=== PATIENT | female | born 1970 | race Caucasian/White ===

== ENCOUNTER 2016-06-29 17:00 | Emergency (ER) | payer MEDICAID ==
[2016-06-29 17:11] VITALS: TEMP 98.1; BMI 21.1
[2016-06-29] MEDS ORDERED: NS 1,000 ML IV ONE (17:22)
--- NOTE | 2016-06-29 17:31 | EDPRACDOC ---
- General Information Chief Complaint: Generalized Weakness Stated Complaint: CONFUSED SWELLING BOTTOM RAW PALE Time Seen by Provider: 06/29/16 17:15 Information Source: Friend Home Medications: Home Medications Alprazolam [Xanax] 1 mg PO Q8H PRN 02/13/16 Oxycodone Immediate Release [Oxycodone Immediate Release (OxyIR)] 10 mg PO Q8H PRN 02/13/16 Docusate Sodium [Colace] 100 mg PO TID #30 capsule 06/29/16 Hydrocortisone [Anusol Hc] 25 mg ME BID #10 supp 06/29/16 Oxycodone HCl [Roxicodone] 5 mg PO Q6H #5 tablet 06/29/16 Allergies/Adverse Reactions: Allergies Allergy/AdvReac Type Severity Reaction Status Date / Time latex Allergy Itching Verified 02/13/16 16:26 meperidine HCl [From Demerol] Allergy Rash-Genera Verified 02/13/16 16:26 lized morphine Allergy See Verified 02/13/16 16:26 Comments NSAIDS (Non-Steroidal Allergy Rash-Genera Verified 02/13/16 16:26 Anti-Inflamma lized - History of Present Illness Onset: 2 days Exact Onset of Symptoms: Unknown HPI: PT SAID THAT SHE HAS NOT BEEN FEELING WELL. SHE HAS HAD A COUGH AND HEMORRHOIDS AND RECTAL BLEEDING. A FAMILY FRIEND BROUGHT PT HERE B/C SHE WAS ALSO ACTING CONFUSED. Symptoms began: Gradually Duration: Since Onset Symptoms Currently: Reports: Still Present Altered Quality: Reports: Confusion Altered Severity: Reports: Mild Recent Symptoms of: Reports: Cough Relevant History: Reports: None Associated signs and symptoms: Reports: Weakness ED Past Medical History - Patient Medical History Cardiac History: Reports: Hypertension (Patient states not taking any meds.) Respiratory History: Reports: COPD, Pneumonia, Emphysema Psychological History: Reports: Anxiety. Denies: Substance Use Disorder Surgical History: Reports: Hysterectomy, Hernia Surgery (10/2015), Other (LEFT HIP, C-SXN, SPLENECTOMY NOVEMBER 2014) Additional Past Surgical History: VENTRAL HERNIA REPAIR - Family Medical History Reports: Cancer (brother), Stroke (grandmother). Denies: Hypertension, Diabetes , Cardiac Disorders - Social Medical History Smoking Status: Heavy tobacco smoker (5 or more cigarettes/day or daily pipe/ cigar) Social History: Denies: Substance Use Disorder ETOH: None Substance Abuse: None Lives In: Home EDM Review of Systems - Review of Systems ROS Negative Except as Marked: Yes All systems reviewed and were negative except as marked Constitutional: Fatigue, Weakness Respiratory: Cough Gastrointestinal: Other (RECTAL BLEEDING) - Physical Exam Constitutional: Alert (Awake) Oriented to: Time, Person, Place Last recorded Vital Signs: Last Vital Signs Temp 98.1 F 06/29/16 17:08 Pulse 104 06/29/16 17:08 Resp 18 06/29/16 17:08 BP Pulse Ox 98 06/29/16 17:08 Oxygen Pulse Oxygen Saturation 98 O2 Device Room Air Oxygen Flow Rate Fraction of Inspired Oxygen ( FIO2) - HEENT Head: Normal ( normocephalic) Eye Exam: Edema, Pale Conjunctiva Oropharynx: Membranes Dry ENT EAC: Normal TMJ: Normal Nose: No Symptoms Reported (septum midline) Neck: Normal (FROM, trachea at midline) - Respiratory/Cardiovascular Respiratory: Wheezes Cardiovascular: Tachycardia - GI Auscultation: Normal (NABS) Palpation: Normal (Soft,No rebound or guarding, non distended) Tenderness: Diffuse, Mild Moya's Sign: Negative Rectal Exam: Heme positive stool, Hemorrhoids (EXTREMELY LARGE AND PAINFUL) Stool: Brown - Musculoskeletal Back: Normal Extremities: Pedal Edema - Integumentary Skin: Normal, Other (TRACK HOWARD) Lymphatics: Normal - Neurologic Memory Impaired: Normal Motor Function: Normal (Normal tone, Pulses 2+ No cyanosis or edema, FROM) Cranial Nerve: Normal (CN II-X11 intact sensation, strength 5/5) Cerebellar: Normal Mood Description: Normal Perception: Normal ED Procedures - Additional Procedures Progress Note: RIGHT FEMORAL VEIN STICK FOR BLOOD DUE TO LACK OF PERIPHERAL ACCESS. 20 CC OF BLOOD REMOVED. - Re-evaluation Re-evaluation 1 Re-evaluation Time: 19:24 (FEELING BETTER) - Results 06/29/16 18:30 06/29/16 18:30 - EKG EKG #1 EKG Time: 17:23 -: Yes EKG interpreted by me Rate: bpm: 100 [place]: Normal Rhythm: ST Block: None Hypertrophy: None ST: Normal Comparison: 10/02/15 - Diagnostic Imaging Chest Image interpreted by: Radiologist Borderline heart size. No acute cardiopulmonary process. - Additional Information Additional Information: PT AWAKE AND ALERT. SHE IS AMBULATING WITHOUT PROBLEMS. SHE HAS REFUSED A CT. SHE SAID SHE IS READY TO GO. Decision Time to Discharge: 19:26 - Departure Yes I personally saw and evaluated the patient. Disposition: Home Condition: Fair Final Diagnosis: Methamphetamine abuse, Hemorrhoids, Chronic pain Instructions: Hemorrhoids (ED) Education/Counseling Given To: Patient Education/Counseling Given Regarding: Diagnosis, Treatment, Follow Up Referrals: Bryon Jacobson MD [Primary Care Provider] - One Week Shawn Sutherland MD [Staff Physician] - One Week Prescriptions: Docusate Sodium [Colace] 100 mg PO TID #30 capsule Hydrocortisone [Anusol Hc] 25 mg ME BID #10 supp Oxycodone HCl [Roxicodone] 5 mg PO Q6H #5 tablet
[2016-06-29 17:52] LABS: WBC/URINE 0-2 (0-5)
[2016-06-29 17:54] LABS: LEUKOCYTES/URINE NEG (NEGATIVE); NITRITE/URINE NEG (NEGATIVE); URINE OCCULT BLOOD NEG (NEG/TRACE)
[2016-06-29 17:57] LABS: ALL NEG? NO; MDMA* NEG (NEGATIVE); METHAMPHETAMINES *POSITIVE* (NEGATIVE); OXYCODONE NEG (NEGATIVE)
--- NOTE | 2016-06-29 18:15 | DIRPT ---
CLINICAL DATA: Mental status change. Facial swelling and confusion. EXAM: PORTABLE CHEST 1 VIEW COMPARISON: 10/09/2015 and 10/06/2015. FINDINGS: 1737 hours. The heart size appears stable at the upper limits of normal for portable technique. There is vascular congestion without overt pulmonary edema, confluent airspace opacity or pleural effusion. The bones appear unremarkable. Telemetry leads overlie the chest. IMPRESSION: Borderline heart size. No acute cardiopulmonary process. Electronically Signed By: Sage Villanueva M.D. On: 06/29/2016 18:12
[2016-06-29 18:50] LABS: AUTOMATED BASOPHIL 0.7 % (0-2); AUTOMATED EOSINOPHIL 1.6 % (0-5); AUTOMATED LYMPH 29.5 % (17-44); AUTOMATED MONOCYTE 9.5 % (3-10); AUTOMATED NEUTROPHIL 58.7 % (45-76); MPV 9.5 fL (7.4-10.4)
[2016-06-29 19:01] LABS: BLOOD UREA NITROGEN 13 MG/DL (7-17); CALC CORRECTED 8.9 MG/DL (8.4-10.2); CALCIUM 7.7 MG/DL (8.4-10.2); CALCULATED OSMOLALITY 272 MOs/Kg (270-290); CHLORIDE 106 mEq/L (98-107); GLUCOSE 146 MG/DL (70-99); SODIUM LEVEL 140 mEq/L (137-146); TOTAL PROTEIN 6.8 G/DL (6.3-8.2)
[2016-06-29 19:09] LABS: PARTIAL THROMB. TIME 40.3 SEC (22-35); PT-INR 1.3
[2016-06-29] MEDS ORDERED: OXYCODONE HCL 5 MG TABLET PO ONE (19:47)
[2016-06-29 19:59] VITALS: BP 152/98; PULSE 100
== END 2016-06-29 19:55 | disposition home or self-care (01) ==
LOC: ED 17:00
DX: F15.10 Other stimulant abuse, uncomplicated (principal); K64.9 Unspecified hemorrhoids; G89.29 Other chronic pain
CPT/HCPCS: 36415; 71010; 80053; 80307; 81001; 82140; 82270; 84484; 85025; 85610; 85730; 93005; 99283; J3490